=== PATIENT | female | born 1975 | race Caucasian/White ===

== ENCOUNTER → 2020-09-25 | Outpatient (CLI) | payer BC | LOC: MAMO 08-31 15:30 | DX: Z12.39 Encounter for other screening for malignant neoplasm of breast (principal) | CPT/HCPCS: 77063; 77067 ==

== ENCOUNTER → 2020-10-25 | Outpatient (CLI) | payer BC | LOC: MRI 10-08 11:15 | DX: M75.41 Impingement syndrome of right shoulder (principal); R93.7 Abnormal findings on diagnostic imaging of other parts of musculoskeletal system | CPT/HCPCS: 73221 ==

== ENCOUNTER → 2022-02-03 | Outpatient (CLI) | payer BC | LOC: KOH-I 10:00 | DX: R51.9 Headache, unspecified (principal); R41.3 Other amnesia | CPT/HCPCS: 70551 ==

== ENCOUNTER → 2022-02-10 | Outpatient (CLI) | payer BC | LOC: MAMO 10:30 | DX: Z12.31 Encounter for screening mammogram for malignant neoplasm of breast (principal) | CPT/HCPCS: 77063; 77067 ==